=== PATIENT | male | born 1955 | race Caucasian/White ===

== ENCOUNTER 2022-09-08 13:53 | Emergency (ER) | payer MEDICARE ==
[2022-09-08] MEDS ORDERED: Clindamycin HCl 150 MG Cap PO ONE (13:54)
[2022-09-08] MEDS ORDERED: Lidocaine 2% Viscous Solution 15 ML UD PO ONE (13:54)
[2022-09-08 14:11] VITALS: BP 143/84; PULSE 64
[2022-09-08] MEDS ORDERED: Clindamycin HCl 150 MG Cap ONE (14:36)
[2022-09-08] MEDS ORDERED: Lidocaine 2% Viscous Solution 15 ML UD ONE (14:36)
== END 2022-09-08 14:53 | disposition home or self-care (01) ==
LOC: DL.ED 13:53
DX: K08.89 Other specified disorders of teeth and supporting structures (principal); E78.00 Pure hypercholesterolemia, unspecified; I10 Essential (primary) hypertension; Z88.1 Allergy status to other antibiotic agents; Z79.82 Long term (current) use of aspirin; Z79.899 Other long term (current) drug therapy
CPT/HCPCS: 99283; A9270